=== PATIENT | male | born 1960 | race Caucasian/White ===

== ENCOUNTER 2023-02-17 08:49 | Outpatient (CLI) | payer BC ==
[2023-02-17] MEDS ORDERED: Iopamidol 300 61% 100 ML VIAL FS ONE (09:40)
== END 2023-02-17 08:50 | disposition home or self-care (01) ==
LOC: CSHCT 08:49
PROVIDERS: ATTEND Otolaryngology
DX: C76.0 Malignant neoplasm of head, face and neck (principal)
CPT/HCPCS: 70491; 82565